=== PATIENT | female | born 1970 | race Caucasian/White ===

== ENCOUNTER 2018-03-13 11:53 | Emergency (ER) | payer OTHER ==
[~2018-03-13] VITALS: Ht 170.2 cm; Wt 73.5 kg
[~2018-03-13 11:53] MED LIST: NASONEX0.05 MG/Ac NAS; TESSALON PERLE100 MG PO
--- NOTE | 2018-03-13 12:41 | RADIOLOGY REPORT ---
EXAMINATION: CHEST 2 VIEWS CLINICAL INFORMATION: Chest pain. Dyspnea. COMPARISON: None. TECHNIQUE: PA and lateral views of the chest were obtained. FINDINGS: The cardiac silhouette is not enlarged. The mediastinal and hilar contours are unremarkable. There are neither pleural effusions nor pneumothoraces. There are no consolidations. The osseous structures are unremarkable. IMPRESSION: No evidence for acute disease.
[2018-03-13] MEDS ORDERED: LISINOPRIL5 M1 PO (13:16)
[2018-03-13 13:17] LABS: ABSOLUTE BASOPHIL COUNT 0 /CUMM (0.0-0.2); ABSOLUTE EOSINOPHIL COUNT 0.3 /CUMM (0.0-0.7); ABSOLUTE GRANULOCYTE CT 6.3 /CUMM (1.4-6.5); ABSOLUTE LYMPH COUNT 1.8 /CUMM (1.2-3.4); ABSOLUTE MONOCYTE COUNT 0.5 /CUMM (0.10-0.60); BASOPHIL % 0.4 % (0.0-2.0); EOSINOPHIL % 3.1 % (0-5); GRANULOCYTE % 70.8 % (42.2-75.2); HEMATOCRIT 45.3 % (37-47); MEAN CORPUSCULAR HGB 29.4 PG (27.0-31.0); MEAN CORPUSCULAR HGB CONC 34.3 G/DL (33.0-37.0); MEAN CORPUSCULAR VOLUME 85.6 FL (81.0-99.0); PLATELET COUNT 226 /CUMM (130-400); RBC DISTRIBUTION WIDTH 13.4 % (11.5-14.5); RED BLOOD CELL CT 5.29 /CUMM (4.20-5.40); WHITE BLOOD CELL COUNT 8.9 /CUMM (4.8-10.8)
--- NOTE | 2018-03-13 13:27 | ED CARDIAC/CP/PALPITATIONS ---
History of Present Illness General Chief Complaint: Upper Respiratory Sx/Fever Stated Complaint: CHEST CONGESTION,COUGHING Source: patient Exam Limitations: no limitations Vital Signs & Intake/Output Vital Signs & Intake/Output Vital Signs Date Time Temp Pulse Resp B/P B/P Pulse O2 O2 Flow FiO2 Mean Ox Delivery Rate 03/13 1427 97.0 83 16 132/94 97 Room Air 03/13 1200 98.2 93 15 144/90 96 Room Air Room Air Allergies Coded Allergies: scallops (GI UPSET 03/13/18) Reconcile Medications Brompheniramine/Pseudoephed/Dm (Bromfed Dm Cough Syrup) 2 MG-30 MG-10 MG/5 ML SYRUP 5-10 ML PO Q4-6 PRN PRN cough Lisinopril 5 MG TABLET 1 TAB PO DAILY HEART (Reported) Triage Note: PT TO ED FOR C/C OF BURNING TO CHEST AND UPPER BACK IN BETWEEN SHOULDER BLADES; NON-PRODUCTIVE COUGH. ALL SYMPTOMS STARTED YESTERDAY WITH ASSOCIIATED POST NASAL DRIP, "I THINK IT'S ALLERGIES." Triage Nurses Notes Reviewed? yes Onset: Gradual Duration: hour(s): Timing: single episode today Quality/Severity: burning Location: substernal HPI: 47yo female with hx of HTN presents emergency department complaining of substernal burning chest pain beginning earlier this morning when she woke up. Patient also reports burning sensation between his scapula. Patient states that yesterday she had rhinorrhea and postnasal drip. Patient also reports dry cough. Patient denies hemoptysis, fevers, chills, abdominal pain, nausea, vomiting, shortness of breath, syncope. (Brie Rowland) Past History Travel History Traveled to [place] past 21 day No Medical History Any Pertinent Medical History? see below for history Neurological: NONE EENT: NONE Cardiovascular: hypertension Respiratory: NONE Gastrointestinal: NONE Hepatic: NONE Renal: NONE Musculoskeletal: NONE Psychiatric: NONE Endocrine: NONE Blood Disorders: NONE Cancer(s): NONE Surgical History Surgical History: non-contributory Psychosocial History What is your primary language Egyptian Tobacco Use: Quit >30 days ago ETOH Use: denies use Illicit Drug Use: denies illicit drug use Family History Hx Contributory? No (Brie Rowalnd) Review of Systems Review of Systems Constitutional: Reports: no symptoms. EENTM: Reports: see HPI. Respiratory: Reports: see HPI. Cardiovascular: Reports: see HPI. GI: Reports: no symptoms. Genitourinary: Reports: no symptoms. Musculoskeletal: Reports: no symptoms. Skin: Reports: no symptoms. Neurological/Psychological: Reports: no symptoms. Hematologic/Endocrine: Reports: no symptoms. Immunologic/Allergic: Reports: no symptoms. All Other Systems: Reviewed and Negative (Brie Rowland) Physical Exam Physical Exam General Appearance: well developed/nourished, no apparent distress, alert, awake Head: atraumatic, normal appearance Eyes: Bilateral: normal appearance. Ears, Nose, Throat: normal pharynx, hearing grossly normal Neck: normal inspection, supple, full range of motion Respiratory: normal breath sounds, no respiratory distress, lungs clear, sternal chest tenderness Cardiovascular: regular rate/rhythm, normal peripheral pulses Peripheral Pulses: 2+ radial (L), 2+ ulnar (L) Back: normal inspection, normal range of motion Extremities: normal inspection, normal range of motion Neurologic/Psych: awake, alert, oriented x 3 Skin: intact, normal color, warm/dry Core Measures ACS in differential dx? Yes CVA/TIA Diagnosis No Sepsis Present: No Sepsis Focused Exam Completed? No (Brie Rowland) Progress Differential Diagnosis: AMI, CHF/pulm edema, costochondritis, myocarditis, pericarditis, pneumonia, pneumothorax, pulmonary embolism, unstable angina, viral URI, allergies Plan of Care: Orders Procedure Date/time Status TROPONIN LEVEL 03/13 1205 Complete COMPREHENSIVE METABOLIC PANEL 03/13 1205 Complete CBC WITHOUT DIFFERENTIAL 03/13 1205 Complete EKG 03/13 1205 Active Laboratory Tests 03/13/18 1308: Anion Gap 11, Estimated GFR > 60, BUN/Creatinine Ratio 18.9, Glucose 96, Calcium 10.0, Total Bilirubin 0.6, AST 31, ALT 44, Alkaline Phosphatase 75, Troponin I < 0.01, Total Protein 7.1, Albumin 4.4, Globulin 2.7, Albumin/Globulin Ratio 1.6, CBC w Diff NO MAN DIFF REQ, RBC 5.29, MCV 85.6, MCH 29.4, MCHC 34.3, RDW 13.4, MPV 9.0, Gran % 70.8, Lymphocytes % 20.4 L, Monocytes % 5.3, Eosinophils % 3.1, Basophils % 0.4, Absolute Granulocytes 6.3, Absolute Lymphocytes 1.8, Absolute Monocytes 0.5, Absolute Eosinophils 0.3, Absolute Basophils 0 Patient has stable EKG without acute ischemic changes. Chest x-ray shows no acute abnormality. Blood work is stable, troponin enzyme negative. Has atypical chest pain, reproducible on physical exam. Patient also has symptoms consistent with viral respiratory tract infection versus allergies. There is a low suspicion for acute cardiac pathology at this time. Patient to begin Bromfed regarding her symptoms and follow-up with her primary care doctor. She was given strict return precautions which she understands and agrees with. The patient is in No acute distress, nontoxic appearing, vital signs are stable. The patient was seen and evaluated by Dr. Steven who agrees with the plan of care. Diagnostic Imaging: Viewed by Me: Radiology Read. Discussed w/RAD: Radiology Read. CXR Impression: PATIENT: OTILIO BLANCAS PRESENT AGE: 47 PATIENT ACCOUNT NO: [id number] : 69 LOCATION: [facility] ORDERING PHYSICIAN: Brie CONTEH SERVICE DATE: 03/13/18 EXAM TYPE: RAD - XRY-CHEST XRAY, TWO VIEWS EXAMINATION: CHEST 2 VIEWS CLINICAL INFORMATION: Chest pain. Dyspnea. COMPARISON: None. TECHNIQUE: PA and lateral views of the chest were obtained. FINDINGS: The cardiac silhouette is not enlarged. The mediastinal and hilar contours are unremarkable. There are neither pleural effusions nor pneumothoraces. There are no consolidations. The osseous structures are unremarkable. IMPRESSION: No evidence for acute disease. DICTATED BY: Jeremie Quinteros MD DATE/TIME DICTATED:03/13/181234 [employer]:RYLEE DATE/TIME TRANSCRIBED:03/13/181234 CONFIDENTIAL, DO NOT COPY WITHOUT APPROPRIATE AUTHORIZATION. <Electronically signed in Other Vendor System> SIGNED BY: Jeremie Quinteros MD 03/13/18 1241 Initial ED EKG: sinus rhythm @73bpm, nonspecific ST changes Prior EKG: unchanged (06/22/15) (Lety CONTEH,Brie Israel) Departure Departure Disposition: HOME OR SELF CARE Condition: Stable Clinical Impression Primary Impression: Upper respiratory infection Referrals: Navin STEINBERG,Stevie Arceo (PCP/Family) Additional Instructions: Begin Bromfed for cough, congestion, possible allergy symptoms. You may also try Afrin nasal spray for 3 days. If you do not want to try medication you may try saline nasal spray or netti pot. Follow-up with your primary care doctor. Drink Plenty fluids or rest. If you develop any worsening symptoms or concerns please return to the emergency department. Please note that there might be incidental findings in your evaluation that are unrelated to the current emergency department visit. Please notify your primary care doctor about this emergency department visit in order to obtain and review all of the testing performed so that these incidental findings can be monitored as needed. If you had an x-ray performed, please understand that some fractures may not be seen on the initial set of x-rays. If your symptoms persist you might need a repeat set of x-rays to check for such a fracture. If you had a laceration evaluated, please understand that foreign bodies such as glass or wood may not be visible to the naked eye or on plain x-rays. If the wound becomes red, swollen, increasingly more painful or if there is any drainage from the wound, please have it reevaluated by a physician for the possibility of a retained foreign body. If you're unable to follow up as outlined in the discharge instructions please return to the emergency department. Thank you for choosing the [facility] Emergency Department for your care. It was a pleasure to serve you today. Departure Forms: Customer Survey General Discharge Information Prescriptions: Current Visit Scripts Brompheniramine/Pseudoephed/Dm (Bromfed Dm Cough Syrup) 5-10 ML PO Q4-6 PRN PRN cough #120 ML (Brie Rowland) PA/WIRE TWISTING MACHINE OPERATOR Co-Sign Statement Statement: ED Attending supervision documentation- [] I saw and evaluated the patient. I have also reviewed all the pertinent lab results and diagnostic results. I agree with the findings and the plan of care as documented in the PA's/WIRE TWISTING MACHINE OPERATOR's documentation. [x] I have reviewed the ED Record and agree with the PA's/WIRE TWISTING MACHINE OPERATOR's documentation. [] Additions or exceptions (if any) to the PAs/WIRE TWISTING MACHINE OPERATOR's note and plan are summarized below: [] (Saulo Steven DO) Critical Care Note Critical Care Note Critical Care Time: non-applicable (Brie Rowland)
[2018-03-13 14:27] VITALS: BP 132/94
[2018-03-13] MEDS ORDERED: BROMFED DM COU118 M1 PO ×2 (14:38→14:42)
== END 2018-03-13 14:55 ==
LOC: ERH 11:53
PROVIDERS: Physician Assistant
DX: J06.9 Acute upper respiratory infection, unspecified (principal); R07.89 Other chest pain; Z87.891 Personal history of nicotine dependence
CPT/HCPCS: 71046; 93005; 93010